=== PATIENT | female | born 1980 | race Two or more races ===

== ENCOUNTER 2019-05-04 19:44 | Emergency (ER) | payer OTHER ==
[~2019-05-04] VITALS: Ht 165.1 cm; Wt 66.2 kg
[2019-05-04 20:05] VITALS: BP 134/84
--- NOTE | 2019-05-04 20:16 | NUR ---
PT CAME INTO THE ED C/O PRESSURE LIKE MIDSTERNAL CHEST PAIN RADIATING TO THE NECK. INTENSITY 10/14. PT AAOX4, VSS, RESPIRATIONS EVEN AND UNLABORED ON RA W/ NAD NOTED. PT CONNECTED TO THE MONITOR AND POX. -NV, -DIAPHORESIS, -SOB. ENDORSES TINGLING SENSATION ON THE MOUTH
--- NOTE | 2019-05-04 20:18 | NUR ---
DR SELLERS AT BEDSIDE
[2019-05-04] MEDS ORDERED: LIDOCAINE VISCOUS 2% UD 15 ML UDC ONE (20:26)
[2019-05-04] MEDS ORDERED: MAG HYDROX/AL HYDROX/SIMETH 30 ML UDC ONE (20:27)
[2019-05-04] MEDS ORDERED: LIDOCAINE VISCOUS 2% UD 15 ML UDC MM ONE (20:30)
[2019-05-04] MEDS ORDERED: MAG HYDROX/AL HYDROX/SIMETH 30 ML UDC PO ONE (20:30)
--- NOTE | 2019-05-04 20:53 | NUR ---
Patient discharged to home in stable condition. Written and verbal after care instructions given. Patient verbalizes understanding of instruction.
== END 2019-05-04 20:54 | disposition home or self-care (01) ==
LOC: ER 19:48
DX: R10.13 Epigastric pain (principal)